=== PATIENT | female | born 1945 ===

== ENCOUNTER 2017-06-05 09:21 | Outpatient (CLI) | payer OTHER | END 2017-06-05 15:00 | disposition home or self-care (01) | LOC: EDBD 09:21 → TOM 09:21 | DX: N30.00 Acute cystitis without hematuria (principal); N20.0 Calculus of kidney ==

== ENCOUNTER 2017-06-20 13:18 | Outpatient (CLI) | payer OTHER | END 2017-06-20 13:30 | disposition home or self-care (01) | LOC: MAMO-SONO 13:18 | DX: Z12.31 Encounter for screening mammogram for malignant neoplasm of breast (principal); Z87.898 Personal history of other specified conditions; N63.10 Unspecified lump in the right breast, unspecified quadrant ==

== ENCOUNTER 2018-07-11 09:08 | Outpatient (CLI) | payer OTHER | END 2018-07-11 09:20 | disposition home or self-care (01) | LOC: MAMO-SONO 09:08 | DX: Z12.31 Encounter for screening mammogram for malignant neoplasm of breast (principal); Z87.898 Personal history of other specified conditions; N63.11 Unspecified lump in the right breast, upper outer quadrant ==

== ENCOUNTER 2019-07-15 11:08 | Outpatient (CLI) | payer OTHER | END 2019-07-15 11:16 | disposition home or self-care (01) | LOC: MAMO-SONO 11:08 | DX: N63.11 Unspecified lump in the right breast, upper outer quadrant (principal); I11.9 Hypertensive heart disease without heart failure; Z12.31 Encounter for screening mammogram for malignant neoplasm of breast ==

== ENCOUNTER 2019-07-15 12:26 | Outpatient (CLI) | payer OTHER | END 2019-07-15 13:55 | disposition home or self-care (01) | LOC: NUCLEAR 12:26 | DX: M81.0 Age-related osteoporosis without current pathological fracture (principal) ==

== ENCOUNTER 2020-07-27 10:22 | Outpatient (CLI) | payer OTHER | END 2020-07-27 11:05 | disposition home or self-care (01) | LOC: MAMO-SONO 10:22 | PROVIDERS: ATTEND Internal Medicine | DX: Z12.31 Encounter for screening mammogram for malignant neoplasm of breast (principal); Z87.898 Personal history of other specified conditions; N60.11 Diffuse cystic mastopathy of right breast; N60.12 Diffuse cystic mastopathy of left breast ==

== ENCOUNTER 2021-08-09 12:47 | Outpatient (CLI) | payer OTHER | END 2021-08-09 12:59 | disposition home or self-care (01) | LOC: MAMO-SONO 12:47 | PROVIDERS: ATTEND Internal Medicine | DX: N63.12 Unspecified lump in the right breast, upper inner quadrant (principal); N63.11 Unspecified lump in the right breast, upper outer quadrant ==

== ENCOUNTER 2023-06-15 08:18 | Outpatient (CLI) | payer OTHER | END 2023-06-15 08:20 | disposition home or self-care (01) | LOC: SONOGRAMA 08:18 | DX: S86.011A Strain of right Achilles tendon, initial encounter (principal); M19.071 Primary osteoarthritis, right ankle and foot; M19.072 Primary osteoarthritis, left ankle and foot; S93.401A Sprain of unspecified ligament of right ankle, initial encounter ==

== ENCOUNTER 2024-05-28 11:03 | Outpatient (CLI) | payer OTHER | END 2024-05-28 11:10 | disposition home or self-care (01) | LOC: MAMO-SONO 11:03 | DX: C50.919 Malignant neoplasm of unspecified site of unspecified female breast (principal); Z12.31 Encounter for screening mammogram for malignant neoplasm of breast ==